=== PATIENT | female | born 1985 | race Caucasian/White ===

== ENCOUNTER 2022-03-12 20:23 | Emergency (ER) | payer MEDICAID ==
[~2022-03-12] VITALS: Ht 149.9 cm; Wt 78.0 kg
[2022-03-12 22:48] LABS: CHLORIDE 106 mEq/L (98-107)
[2022-03-12 22:49] LABS: HEMATOCRIT. 40.6 % (36.0-48.0); HEMOGLOBIN. 13.7 g/dL (12.0-16.0); MEAN CORPUSCULAR HEMOGLOBIN 30.3 pg (28.0-32.0); MEAN CORPUSCULAR VOLUME 89.7 fL (81.0-99.0); MEAN PLATELET VOLUME 10.8 fl (7.4-10.4); PLATELET 284 x1000/uL (130-400); RED BLOOD CELL COUNT 4.52 mill/uL (4.2-5.4); RED CELL DISTRIBUTION WIDTH 14.4 % (11.6-14.6)
[2022-03-12 23:11] LABS: PLATELET ESTIMATE NORMAL
[2022-03-12 23:12] LABS: B-HCG QUANTITATIVE 11433 mIU/mL (<3)
[2022-03-13 00:02] LABS: CLARITY URINE CLEAR (CLEAR); COLOR URINE YELLOW (YELLOW); KETONES URINE NEGATIVE (NEGATIVE); LEUKOCYTE ESTERASE URINE TRACE (NEGATIVE); NITRITE URINE NEGATIVE (NEGATIVE); OCCULT BLOOD URINE 1+ (NEGATIVE); PH URINE 7.5 (4.5-8.0); PROTEIN URINE NEGATIVE (NEGATIVE); SPECIFIC GRAVITY URINE 1.017 (1.005-1.030)
[2022-03-13] MEDS ORDERED: CEPH250C2 MT (01:21)
[2022-03-13 01:42] VITALS: BP 125/77
== END 2022-03-13 01:49 | disposition home or self-care (01) ==
LOC: EDBD 20:23 → ER 20:23
DX: O26.891 Other specified pregnancy related conditions, first trimester (principal); O23.41 Unspecified infection of urinary tract in pregnancy, first trimester; N39.0 Urinary tract infection, site not specified; R30.0 Dysuria; Z3A.01 Less than 8 weeks gestation of pregnancy; Z98.890 Other specified postprocedural states
CPT/HCPCS: 36415; 76801; 80053; 81003; 84702; 85025; 86850; 86900; 99284

== ENCOUNTER 2022-03-15 04:09 | Emergency (ER) | payer MEDICAID ==
[~2022-03-15] VITALS: Ht 149.9 cm; Wt 78.8 kg
[~2022-03-15 04:09] MED LIST: CEPH250C2 MT
[2022-03-15] MEDS ORDERED: ACETAMINOPHEN 325MG TABLET PO PRN (05:30)
[2022-03-15 05:43] LABS: BASOPHILS % 0.8 % (0.0-2.0); EOSINOPHILS % 0.1 % (0.0-5.0); LYMPHOCYTES % 7.9 % (20.0-50.0); MEAN CORPUSCULAR HEMOGLOBIN 30.1 pg (28.0-32.0); MEAN CORPUSCULAR VOLUME 90.4 fL (81.0-99.0); MEAN PLATELET VOLUME 9.8 fl (7.4-10.4); MONOCYTES % 3.8 % (2.0-8.0); NEUTROPHILS % 87.4 % (40.0-76.0); PLATELET 227 x1000/uL (130-400); RED BLOOD CELL COUNT 3.98 mill/uL (4.2-5.4); RED CELL DISTRIBUTION WIDTH 14.2 % (11.6-14.6)
[2022-03-15 05:51] LABS: CHLORIDE 106 mEq/L (98-107)
[2022-03-15 06:15] LABS: B-HCG QUANTITATIVE 6009 mIU/mL (<3)
[2022-03-15] MEDS ORDERED: MORPHINE SULFATE 4 MG/ML CPJ (NOT FOR IM USE) IV STA (06:31)
[2022-03-15] MEDS ORDERED: ONDANSETRON HCL 4MG/2ML INJ IV STA (06:31)
[2022-03-15 06:38] LABS: CLARITY URINE TURBID (CLEAR); COLOR URINE BLOODY (YELLOW)
[2022-03-15 06:39] LABS: PROTEIN URINE 2+ (NEGATIVE); SPECIFIC GRAVITY URINE 1.029 (1.005-1.030)
[2022-03-15 06:40] LABS: KETONES URINE TRACE (NEGATIVE); NITRITE URINE POSITIVE (NEGATIVE); OCCULT BLOOD URINE 2+ (NEGATIVE); UROBILINOGEN URINE 0.2 E.U./dL (0.2-1.0)
[2022-03-15 06:42] LABS: LEUKOCYTE ESTERASE URINE 2+ (NEGATIVE)
[2022-03-15] MEDS ORDERED: SODIUM CHLORIDE 0.9% 1,000 ML IV ONE (06:45)
[2022-03-15] MEDS ORDERED: CEFTRIAXONE 1 G PREMIX 50 ML IV ONE (08:30)
[2022-03-15] MEDS ORDERED: T3 PO (08:51)
[2022-03-15] MEDS ORDERED: CEPH500C2 MT (08:51)
[2022-03-15 09:04] VITALS: BP 110/55
== END 2022-03-15 09:25 | disposition home or self-care (01) ==
LOC: ER 04:09
DX: O03.4 Incomplete spontaneous abortion without complication (principal); N30.90 Cystitis, unspecified without hematuria; Z98.890 Other specified postprocedural states
CPT/HCPCS: 36415; 76801; 76817; 80053; 81003; 81025; 84702; 85025; 93005; 96361; 96365; 96375; 99285; J0696; J2270; J2405; J7030